=== PATIENT | female | born 1980 ===

== ENCOUNTER 2021-07-24 10:10 | Outpatient (CLI) | payer OTHER ==
[~2021-07-24 10:10] MED LIST: AMOX1TAB5 PO
== END 2021-07-24 10:22 | disposition home or self-care (01) ==
LOC: MAMO-SONO 10:10
PROVIDERS: ATTEND Obstetrics & Gynecology
DX: N60.11 Diffuse cystic mastopathy of right breast (principal)

== ENCOUNTER 2021-08-09 08:00 | Outpatient (CLI) | payer OTHER | END 2021-08-09 08:30 | disposition home or self-care (01) | LOC: PPH VACUNA 08:00 | PROVIDERS: ATTEND Emergency Medicine Pediatric Emergency Medicine | DX: Z23 Encounter for immunization (principal) ==